=== PATIENT | female | born 1970 | race Asian ===

== ENCOUNTER 2022-08-14 11:38 | Day surgery (SDC) | payer BC ==
[2022-08-12 09:29] LABS: Basophils # (auto) 0.1 10 ^3/uL (0-0.2); Basophils % (auto) 0.9 % (0.0-2.0); Eosinophils # (auto) 0.3 10 ^3/uL (0-0.8); Eosinophils % (auto) 4.5 % (0.0-7.0); Hematocrit 41.4 % (36.0-46.0); Hemoglobin 13.4 g/dL (12.2-16.2); Lymphocytes # (auto) 2.5 10 ^3/uL (0.4-5.4); Lymphocytes % (auto) 42.6 % (10.0-50.0); Mean Corpuscular Hemoglobin 28.9 pg (28.0-32.0); Mean Corpuscular Hgb Conc. 32.4 g/dL (32.0-36.0); Monocytes # (auto) 0.4 10 ^3/uL (0-1.3); Monocytes % (auto) 6.6 % (0.0-12.0); Neutrophils # (auto) 2.7 10 ^3/uL (1.6-8.6); Neutrophils % (auto) 45.4 % (37.0-80.0); Nucleated Red Blood Cells % 0.1 %; Red Blood Cells 4.66 10^6/uL (4.0-5.20); White Blood Cell 5.9 10^3/uL (4.4-10.8)
[2022-08-12 09:44] LABS: INR 0.91 (0.9-1.15)
[2022-08-12 10:07] LABS: Potassium 3.8 mmol/L (3.5-5.1)
[2022-08-12 10:18] LABS: Albumin 4.2 g/dL (3.4-5.0); BUN/Creatinine Ratio 21.1; Bilirubin, Total 0.3 mg/dL (0.2-1.0); Total Protein 7.9 g/dL (6.4-8.2)
[~2022-08-14] VITALS: Ht 154.9 cm; Wt 54.4 kg
[~2022-08-14 11:38] MED LIST: ALBUAER3 IN; ATOR40TA52 PO
[2022-08-14] MEDS ORDERED: MIDAZOLAM HCL 5 MG/ML-1ML VIAL ONE (12:59)
[2022-08-14] MEDS: fentaNYL CITRATE 100 MCG/2 ML VL ONE ×2 (13:18→13:24)
[2022-08-14] MEDS: diphenhdrAMINE HCL 50 MG/1 ML VL ONE ×2 (13:18→13:24)
[2022-08-14 14:05] VITALS: BP 122/76
== END 2022-08-14 14:26 | disposition home or self-care (01) ==
LOC: GI 11:38
PROVIDERS: ATTEND Internal Medicine Gastroenterology
DX: K59.00 Constipation, unspecified (principal); K64.8 Other hemorrhoids; J45.909 Unspecified asthma, uncomplicated; E78.5 Hyperlipidemia, unspecified; Z88.0 Allergy status to penicillin; Z88.2 Allergy status to sulfonamides; Z20.822 Contact with and (suspected) exposure to COVID-19
CPT/HCPCS: 36415; 45378; 80053; 85025; 85610; 85730; J1200; J2250; J3010; J7030; U0003